=== PATIENT | male | born 1970 | race Caucasian/White ===

== ENCOUNTER 2016-07-07 08:11 | Day surgery (SDC) ==
[2016-07-07] MEDS ORDERED: VERSED ONE (10:15)
[2016-07-07] MEDS ORDERED: DIPRIVAN 20 ML VIAL IVP ONE (10:15)
[2016-07-07] MEDS ORDERED: SUBLIMAZE ONE (10:15)
[2016-07-07 12:14] VITALS: BP 125/78; TEMP 96.1
--- NOTE | 2016-07-08 09:35 | OP ---
INDICATIONS FOR PROCEDURE: 46-year-old gentleman presents complaining of some epigastric discomfort. He also has intermittent dysphagia to solid foods. He has been feeling better these past few weeks he tells me. He is scheduled for endoscopy exam. MEDICATIONS: SEE ANESTHESIA NOTES. PROCEDURE: ENDOSCOPY, RED BIOPSY, LAO DILATATION. REPORT: The risks, benefits, alternatives and limitations were discussed in detail with the patient. Informed consent was obtained. After adequate sedation was achieved, the video endoscope was introduced in the posterior pharynx and esophagus under direct vision and easily advanced down to the second portion of the duodenum. I then slowly withdrew. The duodenal mucosa appeared unremarkable as did the duodenal bulb. The antrum and body were relatively unremarkable. Two biopsies from the antral wall and from the body obtained for H. Pylori testing. The scope was retroflexed to look at the cardia and fundus which was unremarkable. The scope was anteflexed and withdrawn back through the esophagus which was unremarkable. I advanced the scope back down the gastric lumen. I placed a guidewire and withdrew the scope. Over the guidewire, I easily advanced a 54 Upper Sor[place] dilator. The patient tolerated the procedure well with stable vital signs and pulse oximetry throughout. IMPRESSION: 1. NORMAL ENDOSCOPY EXAM. RECOMMENDATIONS: 1. I suggest small meals throughout the day. 2. I did discuss with them ideal control of his diabetes. His hemoglobin A1C was reportedly at 9.9 and improving on this would help GI symptoms. 3. Strict reflux precautions and we went over these in great detail. 4. Weight loss. 5. Advised to cut and chew his food well and eat slowly. 6. Await H. Pylori; if positive will initiate treatment. 7. Will see him back in the office as needed. CC: ALIYAH SOSA
== END 2016-07-07 11:25 | disposition home or self-care (01) ==
LOC: SURG 08:11
PROVIDERS: ATTEND Internal Medicine Gastroenterology
DX: R13.10 Dysphagia, unspecified (principal); R10.13 Epigastric pain; B96.81 Helicobacter pylori [H. pylori] as the cause of diseases classified elsewhere; E11.9 Type 2 diabetes mellitus without complications
CPT/HCPCS: 82962; 87339

== ENCOUNTER 2016-11-14 21:43 | Outpatient (CLI) | END 2016-11-14 21:44 | disposition home or self-care (01) | LOC: AMBL 21:43 | PROVIDERS: ATTEND Internal Medicine Geriatric Medicine | DX: S06.9X9A Unspecified intracranial injury with loss of consciousness of unspecified duration, initial encounter (principal); R56.9 Unspecified convulsions; W10.9XXA Fall (on) (from) unspecified stairs and steps, initial encounter; G35 Multiple sclerosis; E11.9 Type 2 diabetes mellitus without complications ==